=== PATIENT | male | born 1955 | race African-American/Black ===

== ENCOUNTER 2023-05-29 15:34 | Inpatient (IN) | payer MEDICARE, OTHER ==
[~2023-05-29] VITALS: Ht 170.2 cm; Wt 83.9 kg
[2023-05-29 16:14] LABS: BASOPHILS # (AUTO) 0.2 K/UL (0.0-0.2); BASOPHILS % (AUTO) 2.5 % (0.0-2.0); EOSINOPHILS # (AUTO) 0.1 K/uL (0.0-0.7); EOSINOPHILS % (AUTO) 1.1 % (0.0-7.0); HEMATOCRIT 32.8 % (36.7-47.1); HEMOGLOBIN 10.6 g/dL (12.5-16.3); LYMPHOCYTES # (AUTO) 1.4 K/uL (0.8-4.8); MEAN CORPUSCULAR HEMOGLOBIN 25.6 uug (23.8-33.4); MEAN CORPUSCULAR HGB CONC 32 g/dL (32.5-36.3); MEAN CORPUSCULAR VOLUME 79.4 fL (73.0-96.2); MONOCYTES # (AUTO) 0.6 K/uL (0.1-1.30); NEUTROPHILS % (AUTO) 64.4 % (38.5-71.5); PLATELET COUNT (AUTO) 240 K/uL (152-348); RED BLOOD CELL COUNT(AUTO) 4.13 MIL/uL (4.06-5.63); RED CELL DISTRIBUTION WIDTH 25.4 % (12.1-16.2); WHITE BLOOD COUNT (AUTO) 6.3 K/uL (3.6-10.2)
[2023-05-29 16:20] LABS: DIFFERENTIAL COMMENT 1
[2023-05-29 16:42] LABS: CALCIUM 9.5 mg/dL (8.5-10.1); CARBON DIOXIDE 27 mmol/L (21-32); CHLORIDE 96 mmol/L (98-107); GLUCOSE 124 mg/dL (74-106); POTASSIUM 4.6 mmol/L (3.5-5.1); SODIUM SERUM 139 mmol/L (136-145); UREA NITROGEN, BLOOD 57 mg/dL (7-18)
[2023-05-29 16:55] LABS: ALANINE AMINOTRANSFERASE 89 U/L (16-63); ALBUMIN 3.1 g/dL (3.4-5.0); ALKALINE PHOSPHATASE 212 U/L (50-136); ASPARTATE AMINOTRANSFERASE 26 U/L (15-37); BILIRUBIN,DIRECT 0.3 mg/dL (0.0-0.2); BILIRUBIN,TOTAL 0.8 mg/dL (0.2-1.0); NT-PRO BNP 28435 pg/mL (0-125); TOTAL PROTEIN, SERUM 8.3 g/dL (6.4-8.2)
[2023-05-29] MEDS ORDERED: ONDANSETRON 4 MG/2 ML VIAL IV PRN (20:15)
[2023-05-29] MEDS ORDERED: TEMAZEPAM 15 MG CAPSULE PO PRN (20:15)
[2023-05-29] MEDS ORDERED: ACETAMINOPHEN 325 MG TABLET PO PRN (20:15)
[2023-05-29] MEDS ORDERED: LISI10TA29 (20:19)
[2023-05-29] MEDS ORDERED: HYDR-4077 (20:19)
[2023-05-29] MEDS ORDERED: SEVE800T28 (20:19)
[2023-05-29] MEDS ORDERED: BACL10TA PO (20:19)
[2023-05-29] MEDS ORDERED: CALC667C (20:19)
[2023-05-29] MEDS ORDERED: LEVE500T9 (20:19)
[2023-05-29] MEDS ORDERED: ALLO100T PO (20:19)
[2023-05-29] MEDS ORDERED: CEFTRIAXONE /D5W 50ML IVPB **ER PYXIS IV ONE (20:42)
[2023-05-29] MEDS: CEFTRIAXONE 1 G in IV DEXTROSE 5% 50 ML IV ONE (20:48)
[2023-05-29] MEDS: DOCUSATE SODIUM 100 MG CAPSULE PO SCH (21:00)
[2023-05-29] MEDS ORDERED: METRONIDAZOLE 500 MG/NS 100ML 100 ML IV ONE (21:01)
[2023-05-29] MEDS: METRONIDAZOLE 500 MG/NS 100ML 100 ML IV ONE (21:25)
[2023-05-29] MEDS ORDERED: VANCOMYCIN IV 200 ML ONE (21:59)
[2023-05-29] MEDS: VANCOMYCIN IV 1,000 MG in IV DEXTROSE 5% 250 ML IV ONE (22:14)
[2023-05-29] MEDS ORDERED: DOCUSATE SODIUM 100 MG CAPSULE PO ONE (22:21)
[2023-05-30 00:31] VITALS: BP 119/50; TEMP 97.4; O2SAT 99
[2023-05-30 04:20] VITALS: BP 122/56; TEMP 97.5; O2SAT 98
[2023-05-30] MEDS: PANTOPRAZOLE SODIUM 40 MG TABLET.DR PO SCH (06:24)
[2023-05-30 08:00] VITALS: BP 107/61; TEMP 97.4; O2SAT 98
[2023-05-30 08:09] LABS: *TESTOSTERONE, SERUM 323 ng/dL (264-916); TRIIODOTHYRONINE, FREE 3.2 pg/mL (2.0-4.4)
[2023-05-30] MEDS: MORPHINE SULFATE 2 MG/1 ML DISP.SYRIN IV PRN (08:23)
[2023-05-30 09:46] LABS: BASOPHILS # (AUTO) 0.1 K/UL (0.0-0.2); BASOPHILS % (AUTO) 1.6 % (0.0-2.0); EOSINOPHILS # (AUTO) 0.1 K/uL (0.0-0.7); EOSINOPHILS % (AUTO) 1.3 % (0.0-7.0); HEMATOCRIT 31.3 % (36.7-47.1); HEMOGLOBIN 10.1 g/dL (12.5-16.3); LYMPHOCYTES # (AUTO) 1.1 K/uL (0.8-4.8); MEAN CORPUSCULAR HEMOGLOBIN 25.7 uug (23.8-33.4); MEAN CORPUSCULAR HGB CONC 32 g/dL (32.5-36.3); MEAN CORPUSCULAR VOLUME 79.7 fL (73.0-96.2); MONOCYTES # (AUTO) 0.5 K/uL (0.1-1.30); MONOCYTES % (AUTO) 8.1 % (0.0-11.0); NEUTROPHILS # (AUTO) 4.4 K/uL (1.8-8.9); PLATELET COUNT (AUTO) 219 K/uL (152-348); RED BLOOD CELL COUNT(AUTO) 3.93 MIL/uL (4.06-5.63); RED CELL DISTRIBUTION WIDTH 24.8 % (12.1-16.2); WHITE BLOOD COUNT (AUTO) 6.2 K/uL (3.6-10.2)
[2023-05-30 09:55] LABS: DIFFERENTIAL COMMENT 1
[2023-05-30 10:08] LABS: ALBUMIN 2.7 g/dL (3.4-5.0); BILIRUBIN,TOTAL 0.8 mg/dL (0.2-1.0); CALCIUM 9.2 mg/dL (8.5-10.1); MAGNESIUM 2.7 mg/dL (1.8-2.4); PHOSPHOROUS 7.8 mg/dL (2.5-4.9); POTASSIUM 4.9 mmol/L (3.5-5.1); TOTAL PROTEIN, SERUM 7.2 g/dL (6.4-8.2)
[2023-05-30 10:13] LABS: CREATININE 8.2 mg/dL (0.6-1.3)
[2023-05-30] MEDS: PIPERACILLIN/TAZO 2.25 G in IV DEXTROSE 5% 50 ML IV SCH (11:23)
[2023-05-30 11:56] VITALS: BP 106/68; TEMP 97.6; O2SAT 100
[2023-05-30] MEDS: HYDROCODONE/APAP 5-325MG TABLET PO PRN (14:21)
[2023-05-30 16:00] VITALS: BP 152/63; TEMP 97.8; O2SAT 100
[2023-05-30] MEDS: BACLOFEN 10 MG TABLET PO SCH (18:04)
[2023-05-30] MEDS: CALCIUM ACETATE 667 MG CAP/TAB PO SCH (18:04)
[2023-05-30] MEDS: SEVELAMER CARBONATE 800 MG TABLET PO SCH (18:04)
[2023-05-30 20:00] VITALS: BP 101/62; TEMP 97.9; O2SAT 99
[2023-05-30] MEDS: levETIRAcetam 500 MG TABLET PO SCH (21:00)
[2023-05-31] VITALS (8 sets, daily range): BP systolic 101–153; BP diastolic 53–81; TEMP 97.1–97.9; O2SAT 93–100
[2023-05-31] MEDS: VANCOMYCIN IV 1,000 MG in IV DEXTROSE 5% 250 ML IV SCH (00:22)
[2023-05-31 07:30] LABS: BASOPHILS # (AUTO) 0.2 K/UL (0.0-0.2); BASOPHILS % (AUTO) 2.6 % (0.0-2.0); EOSINOPHILS # (AUTO) 0.2 K/uL (0.0-0.7); EOSINOPHILS % (AUTO) 2.3 % (0.0-7.0); HEMATOCRIT 34.4 % (36.7-47.1); HEMOGLOBIN 11.1 g/dL (12.5-16.3); LYMPHOCYTES # (AUTO) 1.3 K/uL (0.8-4.8); LYMPHOCYTES % (AUTO) 18.9 % (20.5-51.5); MEAN CORPUSCULAR HEMOGLOBIN 25.9 uug (23.8-33.4); MEAN CORPUSCULAR HGB CONC 32 g/dL (32.5-36.3); MEAN CORPUSCULAR VOLUME 80.4 fL (73.0-96.2); MONOCYTES # (AUTO) 0.5 K/uL (0.1-1.30); NEUTROPHILS # (AUTO) 4.6 K/uL (1.8-8.9); NEUTROPHILS % (AUTO) 68.2 % (38.5-71.5); PLATELET COUNT (AUTO) 233 K/uL (152-348); RED BLOOD CELL COUNT(AUTO) 4.28 MIL/uL (4.06-5.63); RED CELL DISTRIBUTION WIDTH 25.3 % (12.1-16.2); WHITE BLOOD COUNT (AUTO) 6.7 K/uL (3.6-10.2)
[2023-05-31 07:35] LABS: DIFFERENTIAL COMMENT 1
[2023-05-31 07:54] LABS: CALCIUM 9.3 mg/dL (8.5-10.1); MAGNESIUM 2.9 mg/dL (1.8-2.4); POTASSIUM 5.5 mmol/L (3.5-5.1)
[2023-05-31 08:00] LABS: CREATININE 8.8 mg/dL (0.6-1.3); PHOSPHOROUS 8.6 mg/dL (2.5-4.9)
[2023-05-31] MEDS ORDERED: VANCOMYCIN IV 500 MG in IV DEXTROSE 5% 100 ML IV PRN (08:00)
[2023-05-31] MEDS: LISINOPRIL 10 MG TABLET PO SCH (08:36)
[2023-05-31] MEDS: ALLOPURINOL 100 MG TABLET PO SCH (09:11)
[2023-05-31 14:18] LABS: CALCIUM 8.9 mg/dL (8.5-10.1); CREATININE 5.2 mg/dL (0.6-1.3); POTASSIUM 3.6 mmol/L (3.5-5.1)
[2023-05-31] MEDS ORDERED: LIDOCAINE HCL 1% 20 ML VIAL ONE (16:36)
[2023-05-31] MEDS ORDERED: MIDAZOLAM HCL 2 MG/2 ML VIAL ONE (16:54)
[2023-05-31] MEDS ORDERED: KETAMINE HCL 500 MG/5 ML VIAL ONE (16:54)
[2023-05-31] MEDS ORDERED: FENTANYL CITRATE 100 MCG/2 ML AMPUL ONE (16:54)
[2023-05-31] MEDS ORDERED: LIDOCAINE 1%-EPI 1:100,000 20 ML VIAL ONE ×2 (16:55→16:56)
[2023-05-31] MEDS ORDERED: ALBUMIN HUMAN 5% 250 ML ONE ×2 (17:37→17:49)
[2023-05-31] MEDS ORDERED: MUPIROCIN 2% OINT 22 GM TUBE ONE (22:57)
[2023-05-31] MEDS: MUPIROCIN 2% OINT 22 GM TUBE NS SCH (23:17)
[2023-06-01] VITALS: BP 99/70; TEMP 97.6; O2SAT 93
[2023-06-01 04:00] VITALS: BP 124/52; TEMP 97.9; O2SAT 98
[2023-06-01 07:53] VITALS: BP 99/41; TEMP 97.5; O2SAT 98
[2023-06-01] MEDS: SEVELAMER CARBONATE 800 MG TABLET PO SCH (08:38)
[2023-06-01 11:52] VITALS: BP 105/47; TEMP 97.3; O2SAT 100
[2023-06-01] MEDS: CALCIUM ACETATE 667 MG CAP/TAB PO SCH (12:48)
[2023-06-01 16:37] VITALS: BP 92/68; TEMP 98.4; O2SAT 92
[2023-06-01 20:22] VITALS: BP 120/38; TEMP 98; O2SAT 93
[2023-06-02 04:32] VITALS: BP 140/89; TEMP 98; O2SAT 92
[2023-06-02 07:42] LABS: BASOPHILS # (AUTO) 0.1 K/UL (0.0-0.2); BASOPHILS % (AUTO) 1.9 % (0.0-2.0); EOSINOPHILS % (AUTO) 0.9 % (0.0-7.0); HEMATOCRIT 34.9 % (36.7-47.1); HEMOGLOBIN 11.2 g/dL (12.5-16.3); LYMPHOCYTES % (AUTO) 19.7 % (20.5-51.5); MEAN CORPUSCULAR HEMOGLOBIN 25.6 uug (23.8-33.4); MEAN CORPUSCULAR HGB CONC 32 g/dL (32.5-36.3); MEAN CORPUSCULAR VOLUME 79.7 fL (73.0-96.2); MONOCYTES # (AUTO) 0.5 K/uL (0.1-1.30); MONOCYTES % (AUTO) 9.3 % (0.0-11.0); NEUTROPHILS # (AUTO) 3.5 K/uL (1.8-8.9); NEUTROPHILS % (AUTO) 68.2 % (38.5-71.5); PLATELET COUNT (AUTO) 240 K/uL (152-348); RED BLOOD CELL COUNT(AUTO) 4.37 MIL/uL (4.06-5.63); RED CELL DISTRIBUTION WIDTH 25.1 % (12.1-16.2); WHITE BLOOD COUNT (AUTO) 5.1 K/uL (3.6-10.2)
[2023-06-02 07:58] LABS: DIFFERENTIAL COMMENT 1
[2023-06-02 08:11] LABS: ALBUMIN 2.5 g/dL (3.4-5.0); CALCIUM 9.4 mg/dL (8.5-10.1); MAGNESIUM 2.7 mg/dL (1.8-2.4); POTASSIUM 4.8 mmol/L (3.5-5.1); TOTAL PROTEIN, SERUM 7.2 g/dL (6.4-8.2)
[2023-06-02 08:13] LABS: CREATININE 8.6 mg/dL (0.6-1.3)
[2023-06-02 08:28] LABS: PHOSPHOROUS 7.7 mg/dL (2.5-4.9)
[2023-06-02 08:56] VITALS: BP 128/66; TEMP 98.4; O2SAT 95
[2023-06-02 10:01] VITALS: O2SAT 99
[2023-06-02] MEDS: ALBUTEROL SULFATE 2.5 MG/ 0.5 ML NEBU NEB PRN (10:02)
[2023-06-02 10:13] VITALS: O2SAT 100
[2023-06-02 16:22] LABS: ABG BASE EXCESS 3.7 mmol/L (-2.0-2.0); ABG HCO3 26.4 mmol/L (22.0-26.0); ABG PCO2 33.4 mmHg (35.0-48.0); ABG PH 7.516 (7.340-7.440); ABG PO2 132.5 mmHg (75.0-100.0); ABG TOTAL HEMOGLOBIN 11.7 G/dL (14.0-18.0); AaDO2 98.9 mmHg; COHb 0.6 % (0.0-3.9); MetHb 0.3 % (0.0-1.5); O2Hb 97.7 % (94.0-97.0)
[2023-06-02 17:19] VITALS: BP 111/65; TEMP 97.8; O2SAT 97
[2023-06-02] MEDS: VANCOMYCIN IV 500 MG in IV DEXTROSE 5% 100 ML IV SCH (17:19)
[2023-06-02 19:15] VITALS: BP 110/62; TEMP 97.5; O2SAT 99
[2023-06-02] MEDS: PIPERACILLIN/TAZO 2.25 G in IV DEXTROSE 5% 50 ML IV SCH (22:03)
[2023-06-03] VITALS (9 sets, daily range): BP systolic 100–127; BP diastolic 40–77; TEMP 97.5–98.3; O2SAT 97–100
[2023-06-04 00:06] VITALS: O2SAT 97
[2023-06-04 00:31] VITALS: BP 99/40; TEMP 97.4; O2SAT 98
[2023-06-04 04:00] VITALS: BP 110/44; TEMP 97.4; O2SAT 97
[2023-06-04 08:01] VITALS: BP 120/70; TEMP 97.4; O2SAT 96
[2023-06-04] MEDS: NEPRO (VANILLA) 237 ML CAN PO SCH (09:53)
[2023-06-04 10:30] VITALS: O2SAT 96
[2023-06-04 15:30] LABS: BASOPHILS # (AUTO) 0.1 K/UL (0.0-0.2); BASOPHILS % (AUTO) 2.1 % (0.0-2.0); EOSINOPHILS # (AUTO) 0.2 K/uL (0.0-0.7); EOSINOPHILS % (AUTO) 4.7 % (0.0-7.0); HEMOGLOBIN 11.1 g/dL (12.5-16.3); LYMPHOCYTES # (AUTO) 1.1 K/uL (0.8-4.8); LYMPHOCYTES % (AUTO) 21.7 % (20.5-51.5); MEAN CORPUSCULAR HEMOGLOBIN 25.9 uug (23.8-33.4); MEAN CORPUSCULAR HGB CONC 33 g/dL (32.5-36.3); MEAN CORPUSCULAR VOLUME 78.9 fL (73.0-96.2); MONOCYTES # (AUTO) 0.4 K/uL (0.1-1.30); MONOCYTES % (AUTO) 7.2 % (0.0-11.0); NEUTROPHILS # (AUTO) 3.3 K/uL (1.8-8.9); NEUTROPHILS % (AUTO) 64.3 % (38.5-71.5); PLATELET COUNT (AUTO) 240 K/uL (152-348); RED BLOOD CELL COUNT(AUTO) 4.31 MIL/uL (4.06-5.63); RED CELL DISTRIBUTION WIDTH 25.8 % (12.1-16.2); WHITE BLOOD COUNT (AUTO) 5.2 K/uL (3.6-10.2)
[2023-06-04 15:32] LABS: DIFFERENTIAL COMMENT 1
[2023-06-04 15:44] LABS: ALBUMIN 2.1 g/dL (3.4-5.0); BILIRUBIN,TOTAL 0.7 mg/dL (0.2-1.0); CALCIUM 8.9 mg/dL (8.5-10.1); MAGNESIUM 2.6 mg/dL (1.8-2.4); PHOSPHOROUS 7.5 mg/dL (2.5-4.9); POTASSIUM 4.8 mmol/L (3.5-5.1); TOTAL PROTEIN, SERUM 6.8 g/dL (6.4-8.2)
[2023-06-04 15:45] LABS: CREATININE 9.3 mg/dL (0.6-1.3)
[2023-06-04 16:09] LABS: ANISOCYTOSIS 1+; HYPOCHROMASIA 1+
[2023-06-04 16:10] LABS: OVALOCYTES 1+
[2023-06-04 20:00] VITALS: BP 102/50; TEMP 97.8; O2SAT 98
[2023-06-05] VITALS (9 sets, daily range): BP systolic 90–130; BP diastolic 43–68; TEMP 97.6–98.7; O2SAT 95–100
[2023-06-05 07:11] LABS: HEPATITIS B SURFACE AB, QUAL Reactive (.); HEPATITIS B SURFACE AG Negative (Negative)
[2023-06-05] MEDS: MIRALAX 17 GM POWD.PACK PO SCH (09:48)
[2023-06-06 04:52] VITALS: BP 108/60; TEMP 98.3; O2SAT 96
[2023-06-06 12:01] VITALS: BP 135/72; TEMP 97.7; O2SAT 100
== END 2023-06-06 14:40 | DRG 264 ==
LOC: ER 15:35 → TELE3 17:20 → MEDSURG3 06-01 18:00 → TELE3 06-02 19:20 → MEDSURG3 06-05 10:18
PROVIDERS: ADMIT Internal Medicine; ATTEND Internal Medicine
PROC: 05H933Z Insertion of Infusion Device into Right Brachial Vein, Percutaneous Approach (ICD-10-PCS; principal; 2023-05-29)
PROC: 5A1D70Z Performance of Urinary Filtration, Intermittent, Less than 6 Hours Per Day (ICD-10-PCS; 2023-05-30)
PROC: 0JBL0ZZ Excision of Right Upper Leg Subcutaneous Tissue and Fascia, Open Approach (ICD-10-PCS; 2023-05-31)
DX: I13.2 Hypertensive heart and chronic kidney disease with heart failure and with stage 5 chronic kidney disease, or end stage renal disease (principal); I50.43 Acute on chronic combined systolic (congestive) and diastolic (congestive) heart failure; N18.6 End stage renal disease; J69.0 Pneumonitis due to inhalation of food and vomit; L02.415 Cutaneous abscess of right lower limb; L97.119 Non-pressure chronic ulcer of right thigh with unspecified severity; I96 Gangrene, not elsewhere classified; L97.118 Non-pressure chronic ulcer of right thigh with other specified severity; I47.20 Ventricular tachycardia, unspecified; E44.1 Mild protein-calorie malnutrition; E11.65 Type 2 diabetes mellitus with hyperglycemia; E88.09 Other disorders of plasma-protein metabolism, not elsewhere classified; B95.62 Methicillin resistant Staphylococcus aureus infection as the cause of diseases classified elsewhere; I25.5 Ischemic cardiomyopathy; N25.0 Renal osteodystrophy; I25.10 Atherosclerotic heart disease of native coronary artery without angina pectoris; D63.8 Anemia in other chronic diseases classified elsewhere; E78.5 Hyperlipidemia, unspecified; E11.22 Type 2 diabetes mellitus with diabetic chronic kidney disease; E03.9 Hypothyroidism, unspecified; D50.9 Iron deficiency anemia, unspecified; K76.0 Fatty (change of) liver, not elsewhere classified; I25.2 Old myocardial infarction; S06.5XAD Traumatic subdural hemorrhage with loss of consciousness status unknown, subsequent encounter; R40.2362 Coma scale, best motor response, obeys commands, at arrival to emergency department; R40.2142 Coma scale, eyes open, spontaneous, at arrival to emergency department; R40.2252 Coma scale, best verbal response, oriented, at arrival to emergency department; X58.XXXD Exposure to other specified factors, subsequent encounter; M19.90 Unspecified osteoarthritis, unspecified site; G40.909 Epilepsy, unspecified, not intractable, without status epilepticus; R79.89 Other specified abnormal findings of blood chemistry; I08.3 Combined rheumatic disorders of mitral, aortic and tricuspid valves; F19.11 Other psychoactive substance abuse, in remission; Z95.5 Presence of coronary angioplasty implant and graft; Z86.19 Personal history of other infectious and parasitic diseases; Z22.322 Carrier or suspected carrier of Methicillin resistant Staphylococcus aureus; F99 Mental disorder, not otherwise specified; M10.9 Gout, unspecified
CPT/HCPCS: 36415; 36600; 70450; 71045; 73700; 83550; 83605; 83735; 84100; 84403; 84443; 84481; 84484; 85025; 85730; 86706; 87040; 87340; 88312-TC; 90937; 93005; 93307; 94640; 94760; A4649; A6213; G0378; J0696; J2250; J2270; J2543; J3010; J3370; J3490; J7040; J7050; J8499; P9045

== ENCOUNTER 2023-06-11 16:42 | Inpatient (IN) | payer MEDICARE, OTHER ==
[2023-06-11] VITALS (7 sets, daily range): BP systolic 118–123; BP diastolic 45–67; TEMP 98.1; O2SAT 100
[~2023-06-11] VITALS: Ht 172.7 cm; Wt 81.6 kg
[~2023-06-11 16:42] MED LIST: ALLO100T PO; BACL10TA PO; CALC667C; HYDR-4077; LEVE500T9; LISI10TA29; SEVE800T28
[2023-06-11] MEDS ORDERED: CALC668T PO (17:58)
[2023-06-11] MEDS ORDERED: ALBU2.5V38 IH (17:58)
[2023-06-11] MEDS ORDERED: ACET-2154 PO (17:58)
[2023-06-11] MEDS ORDERED: BACL5TAB PO (17:58)
[2023-06-11] MEDS ORDERED: OMEP20CA15 PO (17:58)
[2023-06-11] MEDS ORDERED: LEVE500T20 PO (17:58)
[2023-06-11] MEDS ORDERED: LISI10TA29 PO (17:58)
[2023-06-11] MEDS ORDERED: DOCU100T2 PO (17:58)
[2023-06-11] MEDS ORDERED: SEVE800T7 PO (17:58)
[2023-06-11] MEDS ORDERED: TEMA15CA5 PO (17:58)
[2023-06-11] MEDS ORDERED: POLY17PO4 PO (17:58)
[2023-06-11] MEDS ORDERED: HYDR-3972 PO (17:58)
[2023-06-11 18:08] LABS: BASOPHILS # (AUTO) 0.1 K/UL (0.0-0.2); BASOPHILS % (AUTO) 1.9 % (0.0-2.0); EOSINOPHILS # (AUTO) 0.1 K/uL (0.0-0.7); EOSINOPHILS % (AUTO) 1.4 % (0.0-7.0); HEMATOCRIT 39.4 % (36.7-47.1); HEMOGLOBIN 12.6 g/dL (12.5-16.3); LYMPHOCYTES # (AUTO) 1.2 K/uL (0.8-4.8); LYMPHOCYTES % (AUTO) 18.5 % (20.5-51.5); MEAN CORPUSCULAR HEMOGLOBIN 25.7 uug (23.8-33.4); MEAN CORPUSCULAR HGB CONC 32 g/dL (32.5-36.3); MEAN CORPUSCULAR VOLUME 80.1 fL (73.0-96.2); MONOCYTES # (AUTO) 0.6 K/uL (0.1-1.30); MONOCYTES % (AUTO) 8.8 % (0.0-11.0); NEUTROPHILS # (AUTO) 4.5 K/uL (1.8-8.9); NEUTROPHILS % (AUTO) 69.4 % (38.5-71.5); PLATELET COUNT (AUTO) 255 K/uL (152-348); RED BLOOD CELL COUNT(AUTO) 4.92 MIL/uL (4.06-5.63); RED CELL DISTRIBUTION WIDTH 26.7 % (12.1-16.2); WHITE BLOOD COUNT (AUTO) 6.5 K/uL (3.6-10.2)
[2023-06-11 18:09] LABS: DIFFERENTIAL COMMENT 1
[2023-06-11 18:17] LABS: CARBON DIOXIDE 23 mmol/L (21-32); CHLORIDE 91 mmol/L (98-107); GLUCOSE 154 mg/dL (74-106); SODIUM SERUM 132 mmol/L (136-145)
[2023-06-11 18:24] LABS: AMMONIA < 10 umol/L (11-32)
[2023-06-11 18:26] LABS: ALANINE AMINOTRANSFERASE 8 U/L (16-63); ALBUMIN 2.3 g/dL (3.4-5.0); ALKALINE PHOSPHATASE 146 U/L (50-136); ASPARTATE AMINOTRANSFERASE 13 U/L (15-37); BILIRUBIN,DIRECT 0.2 mg/dL (0.0-0.2); BILIRUBIN,TOTAL 0.7 mg/dL (0.2-1.0); POTASSIUM 7.4 mmol/L (3.5-5.1)
[2023-06-11 18:27] LABS: CALCIUM 9.9 mg/dL (8.5-10.1); CREATININE 15.1 mg/dL (0.6-1.3); UREA NITROGEN, BLOOD 91 mg/dL (7-18)
[2023-06-11] MEDS ORDERED: INSULIN REGULAR, HUMAN 300 UNIT/3 ML VIAL ONE (18:50)
[2023-06-11] MEDS ORDERED: DEXTROSE 50% 50 ML DISP.SYRIN ONE (18:50)
[2023-06-11] MEDS: CALCIUM GLUCONATE IV 2 GM in IV NORMAL SALINE 100 ML IV ONE (18:55)
[2023-06-11] MEDS: DEXTROSE 50% 50 ML DISP.SYRIN IV ONE (18:56)
[2023-06-11] MEDS: INSULIN REGULAR, HUMAN 300 UNIT/3 ML VIAL IV ONE (18:58)
[2023-06-11] MEDS ORDERED: SODIUM BICARBONATE 8.4% 50 MEQ/50 ML DISP.SYRIN IV ONE (19:08)
[2023-06-11] MEDS: SODIUM BICARBONATE 8.4% 50 MEQ/50 ML DISP.SYRIN IV ONE (19:38)
[2023-06-11 20:16] LABS: *OCCULT BLOOD STOOL NEGATIVE (NEGATIVE)
[2023-06-11] MEDS ORDERED: REMEDY ESSENTIAL ZINC PASTE 113 GM TP PRN (21:00)
[2023-06-11] MEDS ORDERED: ONDANSETRON 4 MG/2 ML VIAL IV PRN (21:00)
[2023-06-11] MEDS ORDERED: MAGNESIUM HYDROXIDE 30 ML LIQUID UDC PO PRN (21:00)
[2023-06-11 21:20] LABS: CALCIUM 9.7 mg/dL (8.5-10.1)
[2023-06-11 21:34] LABS: POTASSIUM 6.3 mmol/L (3.5-5.1)
[2023-06-11 21:35] LABS: CREATININE 15.3 mg/dL (0.6-1.3)
[2023-06-12] VITALS (27 sets, daily range): BP systolic 82–118; BP diastolic 50–74; TEMP 95.2–99.7; O2SAT 87–100
[2023-06-12] MEDS ORDERED: INSULIN REGULAR, HUMAN 300 UNITS/3 ML VIAL SQ PRN (01:30)
[2023-06-12 05:23] LABS: BASOPHILS # (AUTO) 0.1 K/UL (0.0-0.2); BASOPHILS % (AUTO) 1.9 % (0.0-2.0); EOSINOPHILS # (AUTO) 0.1 K/uL (0.0-0.7); EOSINOPHILS % (AUTO) 1.6 % (0.0-7.0); HEMATOCRIT 34.3 % (36.7-47.1); HEMOGLOBIN 11.2 g/dL (12.5-16.3); LYMPHOCYTES # (AUTO) 0.9 K/uL (0.8-4.8); MEAN CORPUSCULAR HEMOGLOBIN 25.9 uug (23.8-33.4); MEAN CORPUSCULAR HGB CONC 33 g/dL (32.5-36.3); MEAN CORPUSCULAR VOLUME 79.3 fL (73.0-96.2); MONOCYTES # (AUTO) 0.6 K/uL (0.1-1.30); MONOCYTES % (AUTO) 9.3 % (0.0-11.0); NEUTROPHILS # (AUTO) 5.2 K/uL (1.8-8.9); NEUTROPHILS % (AUTO) 74.2 % (38.5-71.5); PLATELET COUNT (AUTO) 192 K/uL (152-348); RED BLOOD CELL COUNT(AUTO) 4.32 MIL/uL (4.06-5.63); RED CELL DISTRIBUTION WIDTH 26.3 % (12.1-16.2)
[2023-06-12 05:38] LABS: DIFFERENTIAL COMMENT 1
[2023-06-12 05:43] LABS: CALCIUM 8.8 mg/dL (8.5-10.1); MAGNESIUM 3.1 mg/dL (1.8-2.4); PHOSPHOROUS 7.3 mg/dL (2.5-4.9)
[2023-06-12 05:52] LABS: CREATININE 11.3 mg/dL (0.6-1.3)
[2023-06-12] MEDS: BLOOD SUGAR DIAGNOSTIC 1 EACH STRIP VI SCH (06:48)
[2023-06-12] MEDS ORDERED: CALC667T6 PO (09:38)
[2023-06-12] MEDS ORDERED: NOREPINEPHRINE BITARTRATE 32 MG in IV NORMAL SALINE 218 ML IV PRN (15:45)
[2023-06-13] VITALS (14 sets, daily range): BP systolic 77–116; BP diastolic 46–72; TEMP 97.9–98.9; O2SAT 96–100
[2023-06-13 04:59] LABS: BASOPHILS # (AUTO) 0.2 K/UL (0.0-0.2); BASOPHILS % (AUTO) 2.1 % (0.0-2.0); EOSINOPHILS # (AUTO) 0.2 K/uL (0.0-0.7); EOSINOPHILS % (AUTO) 2.2 % (0.0-7.0); HEMATOCRIT 31.1 % (36.7-47.1); HEMOGLOBIN 10.2 g/dL (12.5-16.3); LYMPHOCYTES # (AUTO) 1.3 K/uL (0.8-4.8); LYMPHOCYTES % (AUTO) 18.1 % (20.5-51.5); MEAN CORPUSCULAR HEMOGLOBIN 26.2 uug (23.8-33.4); MEAN CORPUSCULAR HGB CONC 33 g/dL (32.5-36.3); MEAN CORPUSCULAR VOLUME 79.9 fL (73.0-96.2); MONOCYTES # (AUTO) 0.8 K/uL (0.1-1.30); MONOCYTES % (AUTO) 10.7 % (0.0-11.0); NEUTROPHILS # (AUTO) 4.9 K/uL (1.8-8.9); NEUTROPHILS % (AUTO) 66.9 % (38.5-71.5); PLATELET COUNT (AUTO) 196 K/uL (152-348); RED BLOOD CELL COUNT(AUTO) 3.89 MIL/uL (4.06-5.63); RED CELL DISTRIBUTION WIDTH 26.6 % (12.1-16.2); WHITE BLOOD COUNT (AUTO) 7.3 K/uL (3.6-10.2)
[2023-06-13 05:12] LABS: DIFFERENTIAL COMMENT 1
[2023-06-13 05:20] LABS: CALCIUM 8.7 mg/dL (8.5-10.1); MAGNESIUM 2.8 mg/dL (1.8-2.4); PHOSPHOROUS 6.5 mg/dL (2.5-4.9); POTASSIUM 4.5 mmol/L (3.5-5.1)
[2023-06-13 05:22] LABS: CREATININE 8.7 mg/dL (0.6-1.3)
[2023-06-13] MEDS: SODIUM HYPOCHLORITE 0.125% (QUARTER STRENGTH) 473 ML BOTTLE TP SCH (13:14)
[2023-06-13] MEDS: INSULIN REGULAR, HUMAN 300 UNIT/3 ML VIAL SQ PRN (21:21)
[2023-06-14] VITALS (16 sets, daily range): BP systolic 80–107; BP diastolic 47–71; TEMP 97.3–100.3; O2SAT 99–100
[2023-06-14 05:24] LABS: BASOPHILS # (AUTO) 0.1 K/UL (0.0-0.2); BASOPHILS % (AUTO) 1.2 % (0.0-2.0); EOSINOPHILS # (AUTO) 0.2 K/uL (0.0-0.7); HEMATOCRIT 34.5 % (36.7-47.1); LYMPHOCYTES # (AUTO) 1.2 K/uL (0.8-4.8); LYMPHOCYTES % (AUTO) 15.1 % (20.5-51.5); MEAN CORPUSCULAR HEMOGLOBIN 25.8 uug (23.8-33.4); MEAN CORPUSCULAR HGB CONC 32 g/dL (32.5-36.3); MEAN CORPUSCULAR VOLUME 80.7 fL (73.0-96.2); MONOCYTES # (AUTO) 0.7 K/uL (0.1-1.30); MONOCYTES % (AUTO) 9.3 % (0.0-11.0); NEUTROPHILS # (AUTO) 5.7 K/uL (1.8-8.9); NEUTROPHILS % (AUTO) 72.4 % (38.5-71.5); PLATELET COUNT (AUTO) 208 K/uL (152-348); RED BLOOD CELL COUNT(AUTO) 4.28 MIL/uL (4.06-5.63); RED CELL DISTRIBUTION WIDTH 26.4 % (12.1-16.2); WHITE BLOOD COUNT (AUTO) 7.8 K/uL (3.6-10.2)
[2023-06-14 05:50] LABS: CALCIUM 8.9 mg/dL (8.5-10.1); PHOSPHOROUS 6.9 mg/dL (2.5-4.9); POTASSIUM 4.8 mmol/L (3.5-5.1)
[2023-06-14 06:33] LABS: DIFFERENTIAL COMMENT 1
[2023-06-14] MEDS: levETIRAcetam 500 MG/5 ML LIQUID UDC NG ONE (12:10)
[2023-06-14] MEDS: NEPRO (VANILLA) 237 ML CAN PO SCH (12:11)
[2023-06-14] MEDS: LISINOPRIL 10 MG TABLET PO SCH (12:13)
[2023-06-14] MEDS ORDERED: SEVELAMER CARBONATE 800 MG TABLET PO SCH (13:00)
[2023-06-14] MEDS: ALLOPURINOL 100 MG TABLET PO SCH (15:18)
[2023-06-14] MEDS: CALCIUM ACETATE 667 MG CAP/TAB PO SCH (15:18)
[2023-06-14] MEDS: ACETAMINOPHEN 325 MG TABLET PO PRN (16:28)
[2023-06-14] MEDS: MIRALAX 17 GM POWD.PACK PO SCH (17:00)
[2023-06-14] MEDS: SEVELAMER CARBONATE 800 MG POWD.PACK PO SCH (17:30)
[2023-06-14] MEDS: levETIRAcetam 500 MG TABLET PO SCH (21:25)
[2023-06-15] VITALS (21 sets, daily range): BP systolic 81–108; BP diastolic 34–67; TEMP 96.1–98.8; O2SAT 91–100
[2023-06-15 05:03] LABS: BASOPHILS # (AUTO) 0.1 K/UL (0.0-0.2); EOSINOPHILS # (AUTO) 0.3 K/uL (0.0-0.7); EOSINOPHILS % (AUTO) 5.2 % (0.0-7.0); HEMATOCRIT 30.3 % (36.7-47.1); HEMOGLOBIN 9.6 g/dL (12.5-16.3); LYMPHOCYTES # (AUTO) 1.6 K/uL (0.8-4.8); LYMPHOCYTES % (AUTO) 24.2 % (20.5-51.5); MEAN CORPUSCULAR HEMOGLOBIN 25.3 uug (23.8-33.4); MEAN CORPUSCULAR HGB CONC 32 g/dL (32.5-36.3); MEAN CORPUSCULAR VOLUME 79.7 fL (73.0-96.2); MONOCYTES # (AUTO) 0.5 K/uL (0.1-1.30); MONOCYTES % (AUTO) 7.9 % (0.0-11.0); NEUTROPHILS # (AUTO) 3.9 K/uL (1.8-8.9); NEUTROPHILS % (AUTO) 60.7 % (38.5-71.5); PLATELET COUNT (AUTO) 216 K/uL (152-348); RED CELL DISTRIBUTION WIDTH 26.2 % (12.1-16.2); WHITE BLOOD COUNT (AUTO) 6.5 K/uL (3.6-10.2)
[2023-06-15 05:06] LABS: DIFFERENTIAL COMMENT 1
[2023-06-15 05:23] LABS: CALCIUM 8.6 mg/dL (8.5-10.1); MAGNESIUM 3.1 mg/dL (1.8-2.4); PHOSPHOROUS 6.4 mg/dL (2.5-4.9); POTASSIUM 4.6 mmol/L (3.5-5.1)
[2023-06-15 05:42] LABS: CREATININE 11.1 mg/dL (0.6-1.3)
[2023-06-15] MEDS ORDERED: PANTOPRAZOLE SODIUM 40 MG TABLET.DR PO SCH (07:00)
[2023-06-15] MEDS: PANTOPRAZOLE ORAL SUSPENSION 40 MG SUSPDR.PKT PO SCH (08:16)
[2023-06-15] MEDS: MIDODRINE HCL 5 MG TABLET PO SCH (08:29)
[2023-06-16] VITALS (18 sets, daily range): BP systolic 82–103; BP diastolic 45–64; TEMP 97–98.5; O2SAT 96–100
[2023-06-16 05:36] LABS: BASOPHILS # (AUTO) 0.2 K/UL (0.0-0.2); BASOPHILS % (AUTO) 3.4 % (0.0-2.0); EOSINOPHILS # (AUTO) 0.2 K/uL (0.0-0.7); EOSINOPHILS % (AUTO) 4.4 % (0.0-7.0); HEMATOCRIT 29.8 % (36.7-47.1); HEMOGLOBIN 9.7 g/dL (12.5-16.3); LYMPHOCYTES # (AUTO) 1.3 K/uL (0.8-4.8); LYMPHOCYTES % (AUTO) 26.6 % (20.5-51.5); MEAN CORPUSCULAR HEMOGLOBIN 25.7 uug (23.8-33.4); MEAN CORPUSCULAR HGB CONC 33 g/dL (32.5-36.3); MONOCYTES # (AUTO) 0.5 K/uL (0.1-1.30); MONOCYTES % (AUTO) 10.2 % (0.0-11.0); NEUTROPHILS # (AUTO) 2.7 K/uL (1.8-8.9); NEUTROPHILS % (AUTO) 55.4 % (38.5-71.5); PLATELET COUNT (AUTO) 202 K/uL (152-348); RED BLOOD CELL COUNT(AUTO) 3.77 MIL/uL (4.06-5.63); RED CELL DISTRIBUTION WIDTH 25.7 % (12.1-16.2); WHITE BLOOD COUNT (AUTO) 4.8 K/uL (3.6-10.2)
[2023-06-16 05:54] LABS: DIFFERENTIAL COMMENT 1
[2023-06-16 05:56] LABS: CALCIUM 8.5 mg/dL (8.5-10.1); MAGNESIUM 2.8 mg/dL (1.8-2.4); PHOSPHOROUS 5.1 mg/dL (2.5-4.9); POTASSIUM 3.9 mmol/L (3.5-5.1)
[2023-06-16 06:08] LABS: CREATININE 8.4 mg/dL (0.6-1.3)
[2023-06-16] MEDS: TEMAZEPAM 15 MG CAPSULE PO PRN (23:13)
[2023-06-17] VITALS (24 sets, daily range): BP systolic 88–113; BP diastolic 52–69; TEMP 96.7–99; O2SAT 94–99
[2023-06-17 06:19] LABS: BASOPHILS # (AUTO) 0.1 K/UL (0.0-0.2); BASOPHILS % (AUTO) 1.7 % (0.0-2.0); EOSINOPHILS # (AUTO) 0.3 K/uL (0.0-0.7); HEMATOCRIT 32.2 % (36.7-47.1); HEMOGLOBIN 10.4 g/dL (12.5-16.3); LYMPHOCYTES # (AUTO) 1.5 K/uL (0.8-4.8); MEAN CORPUSCULAR HEMOGLOBIN 25.7 uug (23.8-33.4); MEAN CORPUSCULAR HGB CONC 32 g/dL (32.5-36.3); MEAN CORPUSCULAR VOLUME 79.7 fL (73.0-96.2); MONOCYTES # (AUTO) 0.6 K/uL (0.1-1.30); MONOCYTES % (AUTO) 10.3 % (0.0-11.0); NEUTROPHILS # (AUTO) 3.8 K/uL (1.8-8.9); PLATELET COUNT (AUTO) 207 K/uL (152-348); RED BLOOD CELL COUNT(AUTO) 4.04 MIL/uL (4.06-5.63); RED CELL DISTRIBUTION WIDTH 25.6 % (12.1-16.2); WHITE BLOOD COUNT (AUTO) 6.3 K/uL (3.6-10.2)
[2023-06-17 06:24] LABS: DIFFERENTIAL COMMENT 1
[2023-06-17 06:37] LABS: PHOSPHOROUS 5.7 mg/dL (2.5-4.9); POTASSIUM 4.5 mmol/L (3.5-5.1)
[2023-06-17 06:47] LABS: CREATININE 9.7 mg/dL (0.6-1.3)
[2023-06-17] MEDS: VANCOMYCIN FOR PO/GT/NG USE PO SCH (12:17)
[2023-06-17] MEDS: DEXTROSE 50% 50 ML DISP.SYRIN IV PRN (23:13)
[2023-06-18] VITALS (12 sets, daily range): BP systolic 90–111; BP diastolic 53–69; TEMP 98.6–98.9; O2SAT 91–97
[2023-06-18 05:13] LABS: BASOPHILS # (AUTO) 0.1 K/UL (0.0-0.2); BASOPHILS % (AUTO) 1.8 % (0.0-2.0); EOSINOPHILS # (AUTO) 0.2 K/uL (0.0-0.7); EOSINOPHILS % (AUTO) 4.3 % (0.0-7.0); HEMOGLOBIN 9.8 g/dL (12.5-16.3); LYMPHOCYTES # (AUTO) 1.4 K/uL (0.8-4.8); LYMPHOCYTES % (AUTO) 24.2 % (20.5-51.5); MEAN CORPUSCULAR HEMOGLOBIN 25.2 uug (23.8-33.4); MEAN CORPUSCULAR HGB CONC 32 g/dL (32.5-36.3); MEAN CORPUSCULAR VOLUME 79.9 fL (73.0-96.2); MONOCYTES # (AUTO) 0.7 K/uL (0.1-1.30); MONOCYTES % (AUTO) 11.6 % (0.0-11.0); NEUTROPHILS # (AUTO) 3.3 K/uL (1.8-8.9); NEUTROPHILS % (AUTO) 58.1 % (38.5-71.5); PLATELET COUNT (AUTO) 211 K/uL (152-348); RED BLOOD CELL COUNT(AUTO) 3.88 MIL/uL (4.06-5.63); WHITE BLOOD COUNT (AUTO) 5.7 K/uL (3.6-10.2)
[2023-06-18 05:28] LABS: DIFFERENTIAL COMMENT 1
[2023-06-18 05:37] LABS: CALCIUM 8.8 mg/dL (8.5-10.1); PHOSPHOROUS 5.6 mg/dL (2.5-4.9); POTASSIUM 4.4 mmol/L (3.5-5.1)
[2023-06-18 06:03] LABS: CREATININE 10.8 mg/dL (0.6-1.3)
[2023-06-18] MEDS ORDERED: MIDO5TAB4 PO (14:26)
[2023-06-18] MEDS ORDERED: VANC500V PO (14:26)
== END 2023-06-18 16:30 | DRG 640 ==
LOC: ER 16:44 → CCU 21:28
PROVIDERS: ADMIT Internal Medicine; ATTEND Internal Medicine
PROC: 06HY33Z Insertion of Infusion Device into Lower Vein, Percutaneous Approach (ICD-10-PCS; principal; 2023-06-11)
PROC: 5A1D70Z Performance of Urinary Filtration, Intermittent, Less than 6 Hours Per Day (ICD-10-PCS; 2023-06-11)
PROC: 06HY33Z Insertion of Infusion Device into Lower Vein, Percutaneous Approach (ICD-10-PCS; 2023-06-15)
DX: E87.5 Hyperkalemia (principal); G93.41 Metabolic encephalopathy; I21.A1 Myocardial infarction type 2; N18.6 End stage renal disease; I62.02 Nontraumatic subacute subdural hemorrhage; I50.23 Acute on chronic systolic (congestive) heart failure; A04.72 Enterocolitis due to Clostridium difficile, not specified as recurrent; I13.2 Hypertensive heart and chronic kidney disease with heart failure and with stage 5 chronic kidney disease, or end stage renal disease; T82.868A Thrombosis due to vascular prosthetic devices, implants and grafts, initial encounter; I47.20 Ventricular tachycardia, unspecified; E11.22 Type 2 diabetes mellitus with diabetic chronic kidney disease; I44.0 Atrioventricular block, first degree; B19.20 Unspecified viral hepatitis C without hepatic coma; G40.909 Epilepsy, unspecified, not intractable, without status epilepticus; I25.5 Ischemic cardiomyopathy; Z91.158 Patient's noncompliance with renal dialysis for other reason; I08.0 Rheumatic disorders of both mitral and aortic valves; I25.10 Atherosclerotic heart disease of native coronary artery without angina pectoris; Z98.61 Coronary angioplasty status; Z99.2 Dependence on renal dialysis; Z79.899 Other long term (current) drug therapy; E78.5 Hyperlipidemia, unspecified; I25.2 Old myocardial infarction; M19.90 Unspecified osteoarthritis, unspecified site; M10.9 Gout, unspecified; S71.101D Unspecified open wound, right thigh, subsequent encounter; X58.XXXD Exposure to other specified factors, subsequent encounter
CPT/HCPCS: 36415; 70450; 71045; 83605; 83735; 84100; 84484; 85025; 87040; 90937; 93005; 94640; A4606; A4663; A6213; G0378; J0610; J1815; J3370; J3490; J7040; J8499